=== PATIENT | male | born 1950 | race Caucasian/White ===

== ENCOUNTER → 2018-02-07 15:24 | Outpatient (CLI) | payer MEDICARE, OTHER, SELFPAY ==
[2018-02-07 17:02] LABS: PSA,Total- Diagnostic 8.19 ng/mL (0.0-4.0)
== END ==
PROVIDERS: Family Provider Family Medicine; PCP Family Medicine; Referring Provider Nurse Practitioner Adult Health; Visit Provider Nurse Practitioner Adult Health
DX: R97.20 Elevated prostate specific antigen [PSA] (principal)
CPT/HCPCS: 36415; 84153

== ENCOUNTER → 2018-03-10 16:33 | Outpatient (CLI) | payer MEDICARE, OTHER, SELFPAY ==
--- NOTE | 2018-03-10 | PROSBIL_PTH ---
PATIENT: SIMÓN LONG LOC: [facility] U#:[id number] AGE/SX: 74/M ROOM: RE03/10/[address]: Dr. Louis Thomason MD : 1950 BED: DIS: SPEC #: [id number] RECD: 03/10/18 15:48 STATUS: GORDON ARAM #: [id number] AMALIA: 03/10/18 00:[address]: Louis Thomason DEPT: SURGICAL PATHOLOGY RECD BY: Terrell Giron ENTERED: 03/11/18 07:49 SP TYPE: PROST BX SCOTT DR: Dr. Ferny Gordillo MD Tissues: A - PROSTATE RIGHT B - PROSTATE RIGHT C - PROSTATE RIGHT D - PROSTATE LEFT E - PROSTATE LEFT F - PROSTATE LEFT Procedures: PROSTATE BX HEADER OPERATION: Prostate biopsy PRE-OP DIAGNOSIS: Elevated PSA TISSUE SUBMITTED: A - Right apex, B - Right mid, C - Right base, D - Left apex, E - Left mid, F - Left base MICROSCOPIC DIAGNOSIS A. Right prostate, apex, core biopsy: Mild chronic inflammation and focal glandular atrophy. B. Right prostate, mid, core biopsy: Mild chronic inflammation and focal glandular atrophy. C. Right prostate, base, core biopsy: Mild chronic inflammation. Glandular atrophy and focal acute inflammation. See comment. D. Left prostate, apex, core biopsy: Focal glandular atrophy and mild chronic inflammation. E. Left prostate, mid, core biopsy: Focal glandular atrophy and mild chronic inflammation. See comment. F. Left prostate, base, core biopsy: Focal glandular atrophy and mild chronic inflammation. AM:taylor 03/14/18 COMMENT C & E. Immunohistochemistry ([id number]) supports the above diagnosis. MICROSCOPIC DESCRIPTION Slides are reviewed. GROSS DESCRIPTION A - Received is one container designated prostate, right apex. The specimen consists of two elongated fragments of light baum-white soft tissue measuring 1.2 and 1.5 cm in length and 0.1 cm in diameter. The specimen is totally submitted in one cassette. B - Received is one container designated prostate, right mid. The specimen consists of two elongated fragments of light baum-white soft tissue each measuring 1.5 cm in length and 0.1 cm in diameter. The specimen is totally submitted in one cassette. C - Received is one container designated prostate, right base. The specimen consists of two elongated fragments of light baum-white soft tissue each measuring 1.5 cm in length and 0.1 cm in diameter. The specimen is totally submitted in one cassette. D - Received is one container designated prostate, left apex. The specimen consists of two elongated fragments of light baum-white soft tissue each measuring 1 cm in length and 0.1 cm in diameter. The specimen is totally submitted in one cassette. E - Received is one container designated prostate, left mid. The specimen consists of two elongated fragments of light baum-white soft tissue each measuring 1.5 cm in length and 0.1 cm in diameter. The specimen is totally submitted in one cassette. F - Received is one container designated prostate, left base. The specimen consists of two elongated fragments of light baum-white soft tissue each measuring 1.5 cm in length and 0.1 cm in diameter. The specimen is totally submitted in one cassette. / SJ:rg 03/11/18 TC:2 CPT: G0146
--- NOTE | 2018-03-10 | IMM_PTH ---
PATIENT: SIMÓN LONG LOC: [facility] U#:[id number] AGE/SX: 74/M ROOM: RE03/10/[address]: Dr. Louis Thomason MD : 1950 BED: DIS: SPEC #: [id number] RECD: 03/14/18 10:32 STATUS: GORDON RECarlie #: [id number] AMALIA: 03/10/18 00:[address]: Louis Thomason DEPT: IMMUNOHISTOCHEMISTRY RECD BY: Yusra Hooper ENTERED: 03/14/18 10:33 SP TYPE: IMMUNO OTHR DR: Dr. Ferny Gordillo MD Tissues: C - PROSTATE RIGHT E - PROSTATE LEFT Procedures: 34BE12 (add) P40 (add) 34BE12 (initial) PHYSICIAN & INSTITUTION [place] [id number] SPECIMEN INFORMATION: Tissue Source: C - Right prostate base, E - Left prostate mid Clinical Info: Elevated PSA Specimen Number: [id number] C & E CPT code: 90781, 77020 x3 METHODOLOGY: Deparaffinized sections of prefer/formalin-fixed tissue or PAP/DQ stained slides are incubated with monoclonal/polyclonal antibodies/oligonucleotide probes. Localization is made via biotin free immunoperoxidase method. Appropriate controls are performed and reacted as expected. Results on target cell population are indicated in the following table: RESULTS: ANTIBODY / CLONE RESULT Block C 34BE12 (34BE12) positive P40 (BC28) positive Block E 34BE12 (34BE12) positive P40 (BC28) positive These tests were developed and their performance characteristics determined by [facility]. They may not have been cleared or approved by the U.S. Food and Drug Administration. The FDA has determined that such clearance or approval is not necessary. INTERPRETATION: C. Right prostate, base, core biopsy: Benign prostatic tissue. E. Left prostate, mid, core biopsy: Benign prostatic tissue. AM:taylor 03/14/18
== END ==
PROVIDERS: Family Provider Family Medicine; PCP Family Medicine; Referring Provider Urology; Visit Provider Urology
DX: R97.20 Elevated prostate specific antigen [PSA] (principal)
CPT/HCPCS: 88305; 88341; 88342; G0416

== ENCOUNTER → 2018-09-21 09:48 | Outpatient (CLI) | payer MEDICARE, OTHER, SELFPAY ==
[2018-09-21 11:12] LABS: PSA,Total- Diagnostic 5.14 ng/mL (0.0-4.0)
== END ==
PROVIDERS: Family Provider Family Medicine; PCP Family Medicine; Referring Provider Urology; Visit Provider Urology
DX: R97.20 Elevated prostate specific antigen [PSA] (principal)
CPT/HCPCS: 36415; 84153

== ENCOUNTER → 2019-12-18 13:42 | Outpatient (CLI) | payer MEDICARE, OTHER, SELFPAY ==
[2019-12-18 14:23] LABS: PSA,Total- Diagnostic 5.68 ng/mL (0.0-4.0)
== END ==
PROVIDERS: PCP Family Medicine; Referring Provider Urology; Visit Provider Urology
DX: R97.20 Elevated prostate specific antigen [PSA] (principal)
CPT/HCPCS: 36415; 84153

== ENCOUNTER 2020-08-08 10:13 | Inpatient (IN) | payer MEDICARE, OTHER, SELFPAY ==
[2020-08-07] VITALS (16 sets, daily range): BP systolic 79–146; BP diastolic 63–95; PULSE 69–93; RESP 16–18; TEMP 35.9–37; O2SAT 94–100; BMI 23.0
--- NOTE | 2020-08-07 08:31 | EKG12_ITS ---
Test Reason : PRE OP Blood Pressure : / mmHG Vent. Rate : 074 BPM Atrial Rate : 074 BPM P-R Int : 166 ms QRS Dur : 110 ms QT Int : 396 ms P-R-T Axes : 073 226 055 degrees QTc Int : 439 ms Normal sinus rhythm Low voltage QRS Poor R wave progression Borderline ECG Confirmed by BLOSSOM REEVES, LORI ([id number]), legal editor PRECIOUS MARSH ([id number]) on 08/13/2020 10:44:50 AM Referred By: Louis Thomason Confirmed By:LORI CERRATO MD
[2020-08-07] MEDS: Lactated Ringers 1,000 ML 100 ML IV ×2 (09:20→12:15)
[2020-08-07 09:23] LABS: Hematocrit 48.4 % (40-54); Mean Corp Hgb Conc 33.1 g/dL (32-36); Mean Corpuscular Hgb 31.3 pg (27.0-32.0); Mean Corpuscular Volume 94.5 fL (80-94); Mean Platelet Vol. 10.1 fl (6.2-12.0); Platelet Count 322 K/mm3 (150-450); RBC Distribution Width CV 12.4 % (11.6-14.6); RBC Distribution Width SD 43.4 fl (35.1-43.9); Red Blood Count 5.12 M/mm3 (4.6-6.2); White Blood Count 6.2 K/mm3 (4.4-11.0)
--- NOTE | 2020-08-07 10:10 | PROS_PTH ---
PATIENT: SIMÓN LONG LOC: [facility] U#:[id number] AGE/SX: 70/M ROOM: [facility] RE08/08/[address]: Dr. Louis Thomason MD : 1950 BED: 1 DIS: 08/09/2020 SPEC #: [id number] RECD: 08/07/20 14:08 STATUS: GORDON CHIU #: [id number] AMALIA: 08/07/20 10:[address]: Louis Thomason DEPT: SURGICAL PATHOLOGY RECD BY: Gail Mcneil ENTERED: 08/08/20 11:25 SP TYPE: TURP OTHR DR: Dr. Ferny Gordillo MD Tissues: Prostate, NOS Procedures: Surgery Specimen Level IV HEADER OPERATION: Cystoscopy, transurethral resection prostate, Olymp[employer] PRE-OP DIAGNOSIS: BPH with obstruction, lower urinary tract symptoms TISSUE SUBMITTED: Prostate chips MICROSCOPIC DIAGNOSIS Prostate, transurethral resection: Benign nodular hyperplasia, glandular and stromal types. Urothelium with mild chronic inflammation. AM:taylor 08/09/2020 MICROSCOPIC DESCRIPTION Slides are reviewed. GROSS DESCRIPTION Received is one container labeled with the patient's name and designated prostate tissue. The specimen consists of multiple irregular fragments of pink-baum, rubbery, soft tissue that in aggregate weigh 36.4 gm and measure in aggregate 9 x 8 x 3 cm. Collateral Analyst tissue is submitted in ten cassettes. / SJ:taylor 08/08/20 TC:3 CPT: 30760
[2020-08-07] MEDS: Cefazolin 2 GM in 0.9% Normal Saline 100 ML IV (11:12)
--- NOTE | 2020-08-07 11:16 | PCM.DC ---
Discharge Instructions Diet Discharge Diet: No restrictions Activity Discharge Activity: May Not Drive (for 3 days while taking narcotic pain medications.) Additional Activity Instructions:: in offloading shoe Dressing / Incision Call your doctor if your incision/area has: Continuous Slow Oozing, Increased Pain/ Swelling, Increased Redness and Foul Smelling Discharge Call your doctor if you observe: Fever of 101 or Higher, Numbness or Tingling, Shortness of breath, Dizziness, Calf discomfort and Uncontrolled pain Follow Up Care Please Follow Up With: Louis Thomason MD When: 2 week Test Results: Test results from this visit will be discussed in further detail at your follow-up appointment, if applicable. Discharge Plan Admission Primary Reason for Your Visit: turriley Attending Provider: Louis Thomason Primary Care Provider: Ferny Gordillo Discharge Orders/Prescriptions Prescriptions: New ciprofloxacin HCl [Cipro] 500 mg tablet 500 mg PO BID Qty: 14 RF: 0 Continued tamsulosin [Flomax] 0.4 mg Capsule 0.4 mg PO QHS RF: 0 losartan 25 mg Tablet 25 mg PO DAILY RF: 0 Held aspirin 81 mg Tablet,Delayed Release (Dr/Ec) 81 mg PO DAILY RF: 0 Hold Instructions: Resume on 08/21/20. Referrals / Follow Up: Ferny Gordillo MD [Primary Care Provider] - Louis Thomason MD [STAFF PHYSICIAN] -
--- NOTE | 2020-08-07 11:17 | HP.PCM_ITS ---
HPI - General HPI Narrative SIMÓN LONG, is a 70 M who presents with retention of urine after cystoscopy was found to have significant BPH with obstruction has been able to resume urination however he still has obstruction so we will proceed with a TURP. [facility] Medical History (Updated 08/07/20 @ 11:[address] Louis Thomason MD) Alcohol use Anemia CPAP (continuous positive airway pressure) dependence History of ulceration Hypertension Injury of back Non-smoker Prostate disease Wears glasses Home Medications aspirin 81 mg PO DAILY 07/31/20 [History Last Taken 08/06/20] losartan 25 mg PO DAILY 07/31/20 [History Last Taken 08/07/20] tamsulosin [Flomax] 0.4 mg PO QHS 07/31/20 [History Last Taken Unknown] ciprofloxacin HCl [Cipro] 500 mg PO BID #14 tab 08/07/20 [Rx Last Taken Unknown] Allergy/AdvReac Type Severity Reaction Status Date / Time Penicillins Allergy Rash Verified 08/07/20 08:46 Surgical History (Updated 07/31/20 @ 14:55 by Katie Crenshaw) History of esophagogastroduodenoscopy (EGD) History of pyloroplasty Hx of colonoscopy Hx of eye surgery Hx of tonsillectomy Hx of vagotomy Social History Smoking Status: Never smoker ROS Constitutional Constitutional: Denies chills, fever(s) or malaise Eyes Eyes: Denies blurry vision or change in vision ENT HEENT: Reports none Cardiovascular Cardiovascular: Denies chest pain or palpitations Respiratory/Chest Respiratory/Chest: Denies cough or shortness of breath with exertion Gastrointestinal Gastrointestinal: Denies abdominal pain, constipation or diarrhea Genitourinary Genitourinary: Reports systems reviewed and no addt'l complaints, except as documented Musculoskeletal Musculoskeletal: Denies back pain, joint stiffness or joint swelling Integumentary Integumentary: Denies dry skin, jaundice, lesions or rash Neurologic Neurologic: Denies confusion, syncope or weakness Psychiatric Psychiatric: Reports none; Denies anxiety or depression Endocrine Endocrinology: Denies excessive sweating, fatigue or flushing Hematologic/Lymphatic Hematologic/Lymphatic: Denies anemia, easy bleeding or easy bruising Vital Signs Vital Signs Vital Signs: 08/07/20 08:48 Temperature 98.2 F Temperature Source Temporal Pulse Rate 69 Respiratory Rate 16 Respiratory Pattern Normal Blood Pressure 146/95 H Blood Pressure Mean 112 Blood Pressure Source Monitor Blood Pressure Position Semi-Fowlers Blood Pressure Location Right Arm Pulse Ox 100 Oxygen Delivery Method Room Air Weight Weight: 77.1 kg Body Mass Index (BMI) 23.0 Physical Exam Const alert and oriented x3 General Appearance: cooperative HEENT normocephalic, head/scalp atraumatic, EAC's normal and TM's normal bilaterally Eyes PERRL and EOMs intact bilaterally Pupil: sluggish Neck no lymphadenopathy, supple and no JVD General: trachea midline Lymph Lymphatic: no lymphadenopathy noted, lymphedema and lymphadenopathy Resp normal respiratory effort, normal air movement and clear to auscultation bilaterally Cardio regular rate, regular rhythm and peripheral pulses 2+ throughout GI soft to palpation, non-tender and non-distended Extremity normal capillary refill and no clubbing, cyanosis or edema General Extremity: no tenderness to palpation of joints or extremities Skin no rashes or lesions noted General Skin Exam: turgor normal Lesions: no lesions Rashes: no rashes Neuro CN's II-XII intact bilaterally Speech: speech normal Motor Exam: strength 5/5 throughout; Negative for general weakness Psych thought process normal, cooperative and affect normal Appearance: appropriate Lab / Micro Data Result Diagrams: 08/07/20 09:00 Labs: Laboratory Results - last 24 hr 08/07/20 09:00 WBC 6.2 RBC 5.12 Hgb 16.0 Hct 48.4 MCV 94.5 H MCH 31.3 MCHC 33.1 RDW Std Deviation 43.4 RDW Coeff of Aquiles 12.4 Plt Count 322 MPV 10.1 Assessment & Plan Assessment/Plan (1) BPH with obstruction/lower urinary tract symptoms: PLAN: Plan to proceed with a TURP to relieve obstruction.
--- NOTE | 2020-08-07 12:54 | OP.PCM_ITS ---
Report of Operation Date of Procedure: 08/07/20 Pre-Operative Diagnosis: BPH with obstruction Post-Operative Diagnosis: The same Surgery/Procedure Performed:: Transurethral resection of the prostate Description of Surgical Findings:: In the preoperative setting I discussed with the patient how the surgery would be done with expect afterwards. We discussed how a prostate resection is done and we discussed the risk of the surgery incl uding, bleeding, infection, retrograde ejaculation, changes with ejaculation or intercourse,. We discussed the possibility that the resection of the prostate may not alleviate his urinary symptoms. We discussed the small risk of developing scar tissue along the urethral channel and strictures. We also discussed the chance of the prostate could grow back and he may need further surgery or treatment in the future for prostate problems. Patient was taken back to the operating room, timeout procedure was performed, he was identified and marked and placed on the operating room table. He underw ent general anesthesia. He was placed in dorsolithotomy position. Penis and testicles were prepped and draped in usual sterile fashion. Went into the bladder using the visual obturator with a resectoscope. Once inside the bladder identified the right and left ureteral orifice. I then identified the prostate and the anatomy of the prostate. I marked out the area of the sphincter and the verumontanum was identified. I then proceeded with the prostate resection first resected the median lobe. And then resected the right lobe of the prostate. Then to resect the left lobe of the prostate. I then resected the apical tissue of the prostate. Made sure that there was no injury to the sphincter or the verumontanum was still intact. At the end of the resection all the chips were Ellik out of the bladder. I then identified the left and right ureteral orifice and these were confirmed to be in good position and effluxing and not injured. The resectoscope was removed, a 22 [place] catheter was placed into the bladder on continuous irrigation. And the urine was fairly light pink color and draining normally. He was taken back to the PACU in good condition. Surgeon: Katelin Type of Anesthesia: General Drains: 22 [place] three-way catheter Admit VTE Documentation VTE Present on Admission: No VTE Mechan Device Prophylaxis: SCD's
[2020-08-07] MEDS: Lactated Ringers 1,000 ML 125 ML IV ×2 (16:39→19:00)
--- NOTE | 2020-08-07 17:06 | NURSING ---
carreno manually irrigated with Shari Grey RN for 3 large clots. Carreno bag changed again as large clots in bottom of bag. B&O given. linens changed. pericare given. aware charge nurse paged Dr. Thomason
--- NOTE | 2020-08-07 17:14 | NURSING ---
manually irrigated x2 again. multiple clots noted. now flowing bright red. no s/s distress noted
--- NOTE | 2020-08-07 17:26 | NURSING ---
traction placed to carreno as verbal order from Dr. Thomason. pt tolerated well. small clots continued prior to traction. remains bright red.
--- NOTE | 2020-08-07 17:48 | NURSING ---
Addendum entered by Nerissa Noel 08/07/20 18:41: 2nd irrigation bag opened to run together for increased pressure/fluid. bags number 5&6 infusing Original Note: carreno manually irrigated again by dry pan chargerMICHELLE Stone. continued bright red w/ small clots despite traction. Dr. Thomason pagepierce.
--- NOTE | 2020-08-07 17:56 | NURSING ---
Dr. Thomason updated. Dr. Thomason updated pt did have 2 bite of food since OR. Food tray removed. pt informed NPO. aware per Dr. Thomason he is going to take him back to OR
--- NOTE | 2020-08-07 18:19 | NURSING ---
report called to PACU pt transported on tele monitor.
--- NOTE | 2020-08-07 18:29 | NURSING ---
transporting pt to OR, color of carreno decreased in redness. bp recheck now 132/[address] Thomason met at elevator. decision made to postpone OR return. pt returned to room. Dr. Thomason bedside verbal order given to instill 30cc more of NS in carreno balloon. 30cc placed. color more red. Dr. Thomason remains bedside. BP 143/86, Hr 96 100%RA
[2020-08-07] MEDS: Ciprofloxacin 400 MG/200 ML BAG 200 MG IV (18:54)
[2020-08-07] MEDS: Acetaminophen 325 MG Tablet PO (19:06)
[2020-08-07] MEDS: Tamsulosin HCl 0.4 MG Capsule PO (20:53)
[2020-08-07] MEDS: HYDROcodone Bitartrate/Apap 5/325 Tablet PO (20:53)
[2020-08-08] MEDS: Lactated Ringers 1,000 ML 125 ML IV (03:09)
[2020-08-08 03:10] VITALS: BP 106/64; PULSE 73; RESP 16; TEMP 36.6; O2SAT 99
[2020-08-08] MEDS: HYDROcodone Bitartrate/Apap 5/325 Tablet PO ×2 (03:16→21:08)
[2020-08-08] MEDS: Ciprofloxacin 400 MG/200 ML BAG 200 MG IV (06:00)
--- NOTE | 2020-08-08 07:43 | PCM.PN.BLA ---
Progress Note Patient had a heavy bleeding yesterday after TURP finally slowed up overnight. We will hold his blood pressure medication as BP is slightly low. Physical Exam Const alert and oriented x3 General Appearance: cooperative HEENT normocephalic, head/scalp atraumatic, EAC's normal and TM's normal bilaterally Eyes PERRL and EOMs intact bilaterally Pupil: sluggish Neck no lymphadenopathy, supple and no JVD General: trachea midline Lymph Lymphatic: no lymphadenopathy noted, lymphedema and lymphadenopathy Resp normal respiratory effort, normal air movement and clear to auscultation bilaterally Cardio regular rate, regular rhythm and peripheral pulses 2+ throughout GI soft to palpation, non-tender and non-distended Extremity normal capillary refill and no clubbing, cyanosis or edema General Extremity: no tenderness to palpation of joints or extremities Skin no rashes or lesions noted General Skin Exam: turgor normal Lesions: no lesions Rashes: no rashes Neuro CN's II-XII intact bilaterally Speech: speech normal Motor Exam: strength 5/5 throughout; Negative for general weakness Psych thought process normal, cooperative and affect normal Appearance: appropriate Assessment & Plan Assessment/Plan (1) BPH with obstruction/lower urinary tract symptoms: PLAN: Given the heavy bleeding yesterday and can keep the catheter in place. Took the catheter off traction this morning. Continue with bladder irrigation to keep the urine clear. Probably will remove the catheter tomorrow for voiding trial. Hep-Lock IV fluids.
[2020-08-08 07:44] VITALS: BP 110/71; PULSE 66; RESP 16; TEMP 36.6; O2SAT 98
--- NOTE | 2020-08-08 10:40 | CASEMGMT ---
RN CM Face to Face with patient for initial transition planning/care coordination assessment. RN CM introduced self and role at [facility]. Patient lying in bed, alert and oriented. Patient willing to participate in assessment and is able to answer all questions appropriately. Care providers, pharmacy, and demographics verified. Patient wishes to discharge home, denies need for home health at this time. Patient states he has no further needs or concerns at this time. CM to follow for discharge planning needs that may arise. PCP: Duy Specialists: Katelin Singh [facility]acy: [facility] Insurance: [facility], [facility] Prescription Benefit: yes Living Will/HPOA: yes, Shelia Bustos LNOK: Living Arrangements: Patient lives with in a single story home with 2-3 steps and railing to enter the home. Patient states he is independent at home. Transportation: , self DME/HHC: Patient states he has cpap at home. Denies previous HHC. Disposition Plan: Patient to discharge home with family support and follow-up plans in place. Ade BELLAMY, RN, CM
[2020-08-08 15:45] VITALS: BP 130/77; PULSE 74; RESP 18; TEMP 36.7; O2SAT 96
[2020-08-08 19:40] VITALS: BP 120/78; PULSE 77; RESP 16; TEMP 36.9; O2SAT 98
[2020-08-08] MEDS: Tamsulosin HCl 0.4 MG Capsule PO (21:08)
[2020-08-08] MEDS: 0.9% Saline Lock 10 ML Syringe IV (21:08)
[2020-08-09 02:00] VITALS: BP 121/72; PULSE 72; RESP 16; TEMP 36.3; O2SAT 98
[2020-08-09] MEDS: HYDROcodone Bitartrate/Apap 5/325 Tablet PO ×2 (05:33→14:11)
[2020-08-09 08:05] VITALS: BP 122/62; PULSE 92; RESP 18; TEMP 37; O2SAT 98
[2020-08-09 14:06] VITALS: BP 122/75; PULSE 86; RESP 18; TEMP 36.6; O2SAT 98
--- NOTE | 2020-08-09 15:27 | PCM.DC ---
Discharge Instructions Diet Discharge Diet: No restrictions Activity Discharge Activity: Return to Normal Activity and May Not Drive (while taking narcotic pain medications.) Dressing / Incision Call your doctor if your incision/area has: Continuous Slow Oozing, Increased Pain/ Swelling, Increased Redness and Foul Smelling Discharge Call your doctor if you observe: Fever of 101 or Higher, Numbness or Tingling, Shortness of breath, Dizziness, Calf discomfort and Uncontrolled pain Follow Up Care Please Follow Up With: Louis Thomason MD When: Call [phone] for an appointment Test Results: Test results from this visit will be discussed in further detail at your follow-up appointment, if applicable. Discharge Plan Admission Admit Date/Time: 08/08/20 10:13 Primary Reason for Your Visit: regan Attending Provider: Louis Thomason Primary Care Provider: Ferny Gordillo Discharge Orders/Prescriptions Prescriptions: New ciprofloxacin HCl [Cipro] 500 mg tablet 500 mg PO BID Qty: 14 RF: 0 Continued tamsulosin [Flomax] 0.4 mg Capsule 0.4 mg PO QHS RF: 0 losartan 25 mg Tablet 25 mg PO DAILY RF: 0 Held aspirin 81 mg Tablet,Delayed Release (Dr/Ec) 81 mg PO DAILY RF: 0 Hold Instructions: Resume on 08/21/20. Referrals / Follow Up: Ferny Gordillo MD [Primary Care Provider] - Louis Thomason MD [STAFF PHYSICIAN] - Disposition Discharge Orders: Discharge Patient (Routine); Ordered 08/09/20 Ordered By: Dr. Louis Thomason
== END 2020-08-09 16:46 | disposition home or self-care (01) | DRG 713 ==
LOC: SDC 10:16 → MS3 10:16
PROVIDERS: Anesthesiology; Admitting Provider Urology; PCP Family Medicine; Referring Provider Urology; Visit Provider Urology
PROC: 0VT08ZZ Resection of Prostate, Via Natural or Artificial Opening Endoscopic (ICD-10-PCS; principal; 2020-08-07 10:00)
DX: N40.1 Benign prostatic hyperplasia with lower urinary tract symptoms (principal); N13.8 Other obstructive and reflux uropathy; R33.8 Other retention of urine; I10 Essential (primary) hypertension
CPT/HCPCS: 85027; 88305; 93005; J7050; J7120; A4216; J0744; J2405

== ENCOUNTER → 2020-11-21 11:09 | Outpatient (CLI) | payer MEDICARE, OTHER, SELFPAY ==
[2020-11-21 13:12] LABS: PSA,Total- Diagnostic 2.51 ng/mL (0.0-4.0)
== END ==
PROVIDERS: PCP Family Medicine; Referring Provider Urology; Visit Provider Urology
DX: R97.20 Elevated prostate specific antigen [PSA] (principal)
CPT/HCPCS: 36415; 84153